=== PATIENT | female | born 1940 | race Caucasian/White ===

== ENCOUNTER 2017-02-25 14:10 | Observation (INO) | payer OTHER ==
[~2017-02-25] VITALS: Ht 154.9 cm; Wt 56.2 kg
--- NOTE | 2017-02-25 15:11 | DIAGNOSTIC IMAGING REPORT ---
PROCEDURE: XR CHEST 1 VIEW INDICATION: CHEST PAIN TECHNIQUE: Portable AP view 02:26 p.m. COMPARISON: Chest x-ray 06/13/2014 FINDINGS: Stable 3 mm right upper lobe calcified granuloma. There are two additional left basilar 2 mm calcified granulomas. Heart and mediastinum are normal. Tortuous aorta. Thorax is normal. IMPRESSION: 1. No acute changes 2. Granulomas
--- NOTE | 2017-02-25 15:34 | ED ORDER SUMMARY ---
..... Patient: CHAR CASTAÑEDA OrderSheet [facility] VisitID: [id number] [place] [address] 76y, F Registration Date/Time: 02/25/2017 ORDER SHEET Weight: 54.4 kg (stated) Allergies: Codeine, Metronidazole, PCN, Doxycycline, Ramipril, Cephalexin, Iodine GENERAL ORDERS: Chest 1V Urgent (14:02/25/2017 Emeka VILLALTA) (Ack 14:23 ZACKARYoewoody) (14:29 KHoerner) Import/Export Administrator (Continuous) (14:02/25/2017 Emeka VILLALTA) (14:22 Gregorio R.N.) CBC w Diff Urgent (14:02/25/2017 Emeka VILLALTA) (Ack 14:23 Florecita) (14:25 KHoerner) CMP Urgent (14:02/25/2017 Emeka VILLALTA) (Ack 14:23 Eliezerner) (14:25 KHoerner) UA-Culture if indicated Urgent (14:02/25/2017 Emeka VILLALTA) (Ack 14:23 Florecita) (14:25 KHoerner) PT with INR Urgent (14:02/25/2017 Emeka VILLALTA) (Ack 14:23 Florecita) (14:25 KHoerner) PTT Urgent (14:02/25/2017 Emeka VILLALTA) (Ack 14:23 Florecita) (14:25 KHoerner) BNP Urgent (14:02/25/2017 Emeka VILLALTA) (Ack 14:23 Florecita) (14:25 KHoerner) D-Dimer Urgent (14:02/25/2017 Emeka VILLALTA) (Ack 14:23 ZACKARYoeelbaner) (14:25 KHoerner) Amylase Urgent (14:02/25/2017 Emeka VILLALTA) (Ack 14:23 Florecita) (14:25 KHoerner) Lipase Urgent (14:02/25/2017 Emeka VILLALTA) (Ack 14:23 Eliezerner) (14:25 KHoerner) CPK Urgent (14:21 02/25/2017 Emeka VILLALTA) (Ack 14:23 KHoerner) (14:25 KHoervenita) Troponin-I Urgent (14:02/25/2017 Emeka VILLALTA) (Ack 14:23 KHoerner) (14:25 KHoerner) Oxygen (2 L/min) (NC) (14:02/25/2017 Emeka VILLALTA) (14:22 Gregorio R.N.) Pulse oximeter (14:02/25/2017 Emeka VILLALTA) (14:22 Gregorio R.N.) EKG - ER Stat (14:02/25/2017 Emeka VILLALTA) (14:22 Gregorio R.N.) MEDICATION ORDERS: Aspirin PO 325 mg (NOW) (14:21 02/25/2017 Emeka VILLALTA) (Ack 14:22 Gregorio R.N.) (Cancelled: Physician Order14:27 Gregorio R.N.) IV FLUIDS: ORDER SHEET NOTES: [Electronically signed by Joseph French R.N. (16:50 02/25/2017)] [Electronically signed by Syed Calvert MD (17:00 02/25/2017)] [Electronically locked/signed by Joseph French R.N. (16:50 02/25/2017)]
--- NOTE | 2017-02-25 15:34 | ED ORDER SUMMARY ---
..... Patient: CHAR CASTAÑEDA OrderSheet [facility] VisitID: [id number] [place] [address] 76y, F Registration Date/Time: 02/25/2017 ORDER SHEET Weight: 54.4 kg (stated) Allergies: Codeine, Metronidazole, PCN, Doxycycline, Ramipril, Cephalexin, Iodine GENERAL ORDERS: Chest 1V Urgent (14:02/25/2017 Emeka VILLALTA) (Ack 14:23 ZACKARYoewoody) (14:29 KHoerner) Denture Contour Wire Specialist (Continuous) (14:02/25/2017 Emeka VILLALTA) (14:22 Gregorio R.N.) CBC w Diff Urgent (14:02/25/2017 Emeka VILLALTA) (Ack 14:23 Florecita) (14:25 KHoerner) CMP Urgent (14:02/25/2017 Emeka VILLALTA) (Ack 14:23 Eliezerner) (14:25 KHoerner) UA-Culture if indicated Urgent (14:02/25/2017 Emeka VILLALTA) (Ack 14:23 Florecita) (14:25 KHoerner) PT with INR Urgent (14:02/25/2017 Emeka VILLALTA) (Ack 14:23 Florecita) (14:25 KHoerner) PTT Urgent (14:02/25/2017 Emeka VILLALTA) (Ack 14:23 Florecita) (14:25 KHoerner) BNP Urgent (14:02/25/2017 Emeka VILLALTA) (Ack 14:23 Florecita) (14:25 KHoerner) D-Dimer Urgent (14:02/25/2017 Emeka VILLALTA) (Ack 14:23 ZACKARYoeelbaner) (14:25 KHoerner) Amylase Urgent (14:02/25/2017 Emeka VILLALTA) (Ack 14:23 Florecita) (14:25 KHoerner) Lipase Urgent (14:02/25/2017 Emeka VILLALTA) (Ack 14:23 Eliezerner) (14:25 KHoerner) CPK Urgent (14:21 02/25/2017 Emeka VILLALTA) (Ack 14:23 KHoerner) (14:25 KHoervenita) Troponin-I Urgent (14:02/25/2017 Emeka VILLALTA) (Ack 14:23 KHoerner) (14:25 KHoerner) Oxygen (2 L/min) (NC) (14:02/25/2017 Emeka VILLALTA) (14:22 Gregorio R.N.) Pulse oximeter (14:02/25/2017 Emeka VILLALTA) (14:22 Gregorio R.N.) EKG - ER Stat (14:02/25/2017 mEeka VILLALTA) (14:22 Gregorio R.N.) MEDICATION ORDERS: Aspirin PO 325 mg (NOW) (14:21 02/25/2017 Emeka VILLALTA) (Ack 14:22 Gregorio R.N.) (Cancelled: Physician Order14:27 Gregorio R.N.) IV FLUIDS: ORDER SHEET NOTES: [Electronically signed by Joseph French R.N. (16:50 02/25/2017)] [Electronically signed by Syed Calvert MD (17:00 02/25/2017)] [Electronically locked/signed by Joseph French R.N. (16:50 02/25/2017)]
--- NOTE | 2017-02-25 15:34 | ED CLINICAL REPORT ---
Clinical Report - Physicians/Mid Levels [facility] [address] [place] [address] 02/25/2017 14:10 Patient: CHAR CASTAÑEDA Time Seen: 14:17. Arrived- By private vehicle. Historian- patient. HISTORY OF PRESENT ILLNESS Chief Complaint: CHEST PAIN. At its maximum, severity described as 7 / 10. When seen in the E.D., it was gone. This started today and is now gone. It was abrupt in onset and has been constant. Onset during sleep. It is described as sharp and it is described as located in the left chest area and radiating to the left arm. The patient has had mild difficulty breathing and nausea. No vomiting or diaphoresis. Similar symptoms previously: Prehospital Treatment: EMS treatment SLEEP TECHNOLOGIST verbally communicated. NITROGLYCERIN SL given by EMS. REVIEW OF SYSTEMS No chills, fever, sweats, pedal edema or constipation. No diarrhea, nausea or vomiting. She has had mild calf pain involving the right leg and left leg (chronically). It has been similar to previous episodes. She has had mild, aching abdominal pain (her PCP has been following this). The pain is described as located in the upper abdomen. All systems otherwise negative, except as recorded above. PAST HISTORY PCP - [facility] - [facility]. Problems: Coronary Artery Disease. Aphthous Ulcer. Chest Pain. Eye Pain. Chest Wall Pain. Constipation. Diverticulitis. Pressure Ulcer. Hypotension. GI Bleeding. Fibromyalgia. Anxiety Reaction. Hypertension. Corneal Abrasion. Additional Surgeries: Angioplasty with coronary artery stent placement. Cardiac Procedures. Cholecystectomy. Hysterectomy. Kidney stones. Medications: Aspirin EC Oral 81 mg, daily. Pantoprazole Sodium Oral 40 mg, daily. Zofran ODT Oral, as needed. Omeprazole Oral 40 mg, before meals. Metoprolol Tartrate Oral 25 mg, two times a day. DULoxetine HCl Oral 60mg, daily. Benzonatate Oral (Capsule 200 mg) 1 capsule, 3x a day. Advair Diskus Inhalation (Aerosol Powder Breath Activated 100-50 mcg/dose) 1 puff, 2x a day. Allergies: Cephalexin. Codeine.(Anaphylaxis) Doxycycline. Iodine. Metronidazole. PCN. Ramipril. SOCIAL HISTORY Current every day heavy tobacco smoker (cigarette)- 1 pack per day. No alcohol use or drug use. Residence: [place] she lives with spouse. FAMILY HISTORY No history of aortic aneurysm or dissection. Cancer in first-degree relative (father). father due to a PE. ADDITIONAL NOTES The nursing notes have been reviewed. PHYSICAL EXAM Vital Signs: 02/25/2017 14:09 BP: 135/89. HR: 70. RR: 15. O2 saturation: 99%. Temp: 98.2 F. Pain level now: 11/27. Have been reviewed. Appearance: Alert. No acute distress. Eyes: Pupils equal, round and reactive to light. ENT: Pharynx normal. Neck: Normal inspection. Neck supple. No JVD or carotid bruit. CVS: Normal heart rate and rhythm. Heart sounds normal. Respiratory: No respiratory distress. Breath sounds normal. Abdomen: Soft and nontender. Bowel sounds normal. No organomegaly. No mass. Back: Normal external inspection. No CVA tenderness. Skin: Skin warm and dry. Normal skin color. Normal skin turgor. Extremities: Mild right-sided and left-sided calf tenderness. Extremities exhibit normal ROM. No lower extremity edema. LABS, X-RAYS, AND EKG EKG: Rate: 72. Q waves in lead III and aVF. Changes present when compared to prior EKG. (13 June 2014). The study has been independently viewed by me. Chest X-ray: (IMPRESSION: 1. No acute changes 2. Granulomas). The X-rays were interpreted by the radiologist and contemporaneously by me. Laboratory Tests: CBC w Diff: (ARTIS: 02/25/2017 14:15) ( MsgRcvd 02/25/2017 14:37) Final results Test Result Flag Units (Reference) WHITE BLOOD COUNT 6.9 K/uL (4.5-11.5) RED BLOOD COUNT 3.87 L M/uL (4.00-5.20) HEMOGLOBIN 11.6 L gm/dL (12.0-16.0) HEMATOCRIT 35.6 L % (36.0-46.0) MEAN CELL VOLUME 92 fL (80-100) MEAN CORPUSCULAR HGB 30 pg (26-34) MEAN CORPUSCULAR HGB CONC 33 g/dL (31-37) RED CELL DISTRIBUTION WIDTH 14.5 % (11.6-14.8) PLATELET COUNT 262 K/uL (150-400) NEUTROPHIL % 58.7 % (50-75) LYMPH % 32.7 % (25-40) MONO % 5.7 % (3-14) EOSINOPHIL % 2.3 % (0-4) BASOPHIL % 0.6 % (0-2) PT with INR: (ARTIS: 02/25/2017 14:15) ( MsgRcvd 02/25/2017 14:45) Final results Test Result Flag Units (Reference) INR 0.9 (0.8-1.2) Low Intensity Therapy: INR 1.5-2.0 PT range 18.5-23.1Mod.Intensity Therapy: INR 2.0-3.0 PT range 23.1-31.5High Intensity Therapy: INR 2.5-3.5 PT range 27.4-35.5High Intensity Therapy 2: INR 3.0-4.0 PT range 31.5-39.3 APTT 30 SECONDS (24-34) D-DIMER QUANTITATIVE 0.44 ug/mLFEU (0.27-0.52) The primary value of this quantitative assay relates toits negative predictive value (i.e. exclusion) of pulmonaryembolism/deep vein thrombosis/DIC.Elevated levels of d-dimer may also occur with:, age, cancer, inflammation, liver disease,post-op, infection, hematoma, coronary disease, peripheralarteriopathy, bleeding disorders and thrombolytic treatment.Results should be correlated with other clinical andradiological data.Testing Methodology: Latex Immunoassay BNP: (ARTIS: 02/25/2017 14:15) ( MsgRcvd 02/25/2017 14:55) Final results Test Result Flag Units (Reference) B-TYPE NATRIURETIC PEPTIDE 39.6 pg/ml (5-100) CMP: (ARTIS: 02/25/2017 14:15) ( MsgRcvd 02/25/2017 14:56) Final results Test Result Flag Units (Reference) GLUCOSE 109 mg/dL (70-110) BUN 16 mg/dL (7-18) CREATININE 1.1 mg/dL (0.6-1.3) Estimated GFR 51.19 mL/min Estimated GFR- >60 mL/min Note: Persistent reduction over 3 months in eGFR<60 mL/min/1.73 m2 defines CKD. Patients with eGFR values>=60 mL/min/1.73 m2 may also have CKD if evidence ofpersistent proteinuria. Additional information may be foundat www.kidney.org. SODIUM 141 mmol/L (136-145) POTASSIUM 4.9 mmol/L (3.5-5.1) CHLORIDE 106 mmol/L (98-107) CARBON DIOXIDE 25 mmol/L (21-32) CALCIUM 9.2 mg/dL (8.5-10.1) TOTAL PROTEIN 6.6 g/dL (6.4-8.2) ALBUMIN 3.7 g/dL (3.3-5.0) BILIRUBIN, TOTAL 0.2 mg/dL (0.0-1.0) ALKALINE PHOSPHATASE 76 U/L (46-116) AST (SGOT) 19 U/L (15-37) ALT (SGPT) 13 U/L (12-78) LIPASE 117 U/L (73-393) AMYLASE 46 U/L (25-115) CPK 52 U/L (24-260) TROPONIN I <0.05 ng/mL (0.00-1.5) TROPONIN REFERENCE RANGE:<0.1 NEGATIVE0.1-1.5 INDETERMINANT>1.5 POSITIVE . PROGRESS AND PROCEDURES Discussed case with hospitalist, (Elidia - he saw the patient in the ER). Reviewed test results and need for additional work-up. Agreed upon treatment plan, need for patient follow-up and decision to place in observation. Consult obtained from cardiology. Dr. Coburn. Case discussed. Phone consult only. Patient/family counseled. CLINICAL IMPRESSION Chest pain. (Electronically signed by Syed Calvert MD 02/25/2017 17:00)
--- NOTE | 2017-02-25 15:34 | ED NURSING NOTES ---
Clinical Report - Nurses [facility] [address] [place] [address] 02/25/2017 14:10 Patient: CHAR CASTAÑEDA TRIAGE Triage time 14:09. Acuity: LEVEL 3. Chief Complaint: CHEST PAIN. 14:02/25/17. 14:02/25/17. Alert. No acute distress. SEPSIS SCREEN: Sepsis Screen. Negative (no infection suspected/documented). --14:18 Joseph French R.N. 14:02/25/17. BP: 135/89. HR: 70. RR: 15. O2 saturation: 99% on room air. Temp: 98.2 F (oral). Pain level now: 11/27. --14:18 Joseph French R.N. ( Pt developed chest pain at 0200. Pt took 3 doses of NTG SL at home. Pt then took ASA this AM at 0300. Pt went to walk in clinic [facility] and then transferred here.). --14:20 Joseph French R.N. Weight: 54.4 kg stated. Height/Length: 62 inches Per Patient. BMI: 22. --14:10 Joseph French R.N. Medications Advair Diskus Inhalation (Aerosol Powder Breath Activated 100-50 mcg/dose) 1 puff, 2x a day. --14:13 Joseph French R.N. Benzonatate Oral (Capsule 200 mg) 1 capsule, 3x a day. --14:14 Joseph French R.N. DULoxetine HCl Oral 60mg, daily. --14:14 Joseph French R.N. Metoprolol Tartrate Oral 25 mg, two times a day. --14:14 Joseph French R.N. Omeprazole Oral 40 mg, before meals. --14:15 Joseph French R.N. Zofran ODT Oral, as needed. --14:15 Joseph French R.N. Pantoprazole Sodium Oral 40 mg, daily. --14:16 Joseph French R.N. Aspirin EC Oral 81 mg, daily. --14:33 Joseph French R.N. Medication/allergy information source: the patient. --14:18 Joseph French R.N. Allergies Codeine.(Anaphylaxis) --14:16 Joseph French R.N. Metronidazole. --14:17 Joseph French R.N. PCN. --14:17 Joseph French R.N. Doxycycline. --14:17 Joseph French R.N. Ramipril. --14:17 Joseph French R.N. Cephalexin. --14:17 Joseph French R.N. Iodine. --14:18 Joseph French R.N. History Arrived by EMS. Historian: patient. Unaccompanied. Primary physician (KENNEDY FULTON). 14:09 02/25/17. This started today. ( 0200). She has had difficulty breathing. Treatment NAME PLATE STAMPER: (NTG x 2 spray NAME PLATE STAMPER by EMS, NTG at home, ASA at home). PAST MEDICAL HX: Immunizations: has received pneumonia vaccine; has received tetanus within 5 years. Immunizations not up to date. SOCIAL HX: Current every day light tobacco smoker (cigarette)- less than 1/2 a pack per day. No alcohol use or drug use. No infectious disease exposure. ABUSE ASSESSMENT: No report of abuse. FALL RISK ASSESSMENT: Fall risk assessment completed. No fall risk identified. NUTRITIONAL RISK ASSESSMENT: The nutritional risk assessment revealed no deficiencies. FUNCTIONAL ASSESSMENT: Functional assessment: no impairments noted. LEARNING NEEDS ASSESSMENT: The learning needs assessment revealed no barriers. SKIN INTEGRITY ASSESSMENT: Skin integrity risk assessment completed. No skin integrity risk identified. --14:18 Joseph French R.N. Treatment NAME PLATE STAMPER: See EMS report. Pre-hospital 12-lead EKG time: (1336). Pre-hospital 12-lead EKG performed on-scene and interpreted by EMS. EKG consistent with normal tracing. BP: 170 / palp-prior to NTG. HR: 72 regular. ( BP 136/78 after NTG spray). --14:22 Joseph French R.N. PROBLEMS: Coronary Artery Disease. Aphthous Ulcer. Chest Pain. Eye Pain. Chest Wall Pain. Constipation. Diverticulitis. Pressure Ulcer. Hypotension. GI Bleeding. Fibromyalgia. Anxiety Reaction. Hypertension. Corneal Abrasion. Immunizations. --14:18 Joseph French R.N. URI [RuleOut]. --14:18 Joseph French R.N. ADDITIONAL SURGERIES: Angioplasty with coronary artery stent placement. Cardiac Procedures. Cholecystectomy. Hysterectomy. Kidney stones. --14:18 Joseph French R.N. Assessment 14:02/25/17. --14:18 Joseph French R.N. Interventions 14:02/25/17. 14:02/25/17. ID and allergy band on patient. To treatment room. --14:18 Joseph French R.N. PHYSICAL ASSESSMENT 14:02/25/17. Ambulatory to room. GENERAL / NEURO / PSYCH: Alert. Oriented X 4. Appears in no acute distress. RESPIRATORY: Respirations not labored. CVS: Cardiac rhythm: normal sinus rhythm; (69). Pulses within normal limits. Capillary refill less than 2 seconds. SKIN: Skin is warm and dry. --14:19 Joseph French R.N. NURSING PROGRESS NOTES <<STRICKEN ENTRY-- 14:02/25/2017 Site #1 started via IV in the left antecubital space with an 20g angiocath (started by EMS, blood drawn by Tom MAK through IV site). --14:26 Joseph French R.N. --END STRIKE>> Correction. --14:35 Joseph French R.N. 14:02/25/2017 Site #1 started via IV in the left forearm with an 20g angiocath (started by EMS, blood drawn by Tom MAK through IV site). --14:35 Joseph French R.N. 14:02/25/17. The plan of care for this patient has been created. Oxygen administered. packaging machine supplies distributor, pulse oximeter and NIBP monitor placed on patient. EKG time: (5434). EKG was ordered, performed by a nurse and shown to the ED physician. Patient gowned. Head of bed elevated. Reassurance given. Call light placed in reach. Side rails up x 2. Bed placed in lowest position. Brakes of bed on. --14:12 Joseph French R.N. 14:28 02/25/17. ( Pt had ASA, NAME PLATE STAMPER, aware.). --14:28 Joseph French R.N. 14:31 02/25/17. --14:31 Joseph French R.N. 14:30 02/25/17. BP: 125/81. HR: 65. RR: 14. O2 saturation: 99% on nasal cannula at 2 liters/minute. --14:31 Joseph French R.N. 14:31 02/25/17. Patient informed about reason for wait and about plan of care. --14:31 Joseph French R.N. 14:34 02/25/17. Reassessment after medication administered. She has had no adverse reaction. Overall patient status is improved- she states feels better. --14:34 Joseph French R.N. 14:38 02/25/17. Patient informed about reason for wait and about plan of care. --14:38 Joseph French R.N. EKG time: (14:36). EKG was performed by a tech and shown to the PA. --14:41 Patricia Contreras <<STRICKEN ENTRY-- Patient ID band checked for patient name and birthdate: patient confirmed. Instructions provided to collect clean catch urine and patient verbalized understanding urine collected with return of yellow-colored clear urine; odor is normal; sample sent to lab for urinalysis, culture and HCG. Specimen labeled in the presence of the patient. --14:46 Patricia Contreras --END STRIKE>> Charted On Wrong Patient --14:48 Patricia Contreras 15:04 02/25/17. Patient informed about reason for wait and about plan of care. --15:04 Joseph French R.N. 15:04 02/25/17. Patient waiting for lab results. --15:04 Joseph French R.N. 15:25 02/25/17. ( Pt to be admitted due to chest pain.). --15:25 Joseph French R.N. 15:38 02/25/17. --15:38 Joseph French R.N. 15:38 02/25/17. BP: 134/82. HR: 65. RR: 14. O2 saturation: 99% on nasal cannula at 2 liters/minute. --15:38 Joseph French R.N. 15:38 02/25/17. Cardiac rhythm: normal sinus rhythm; (63). --15:38 Joseph French R.N. 16:05 02/25/17. Patient waiting for admit bed. --16:05 Joseph French R.N. DISPOSITION / DISCHARGE 15:35 02/25/17. Patient's personal items include, bra, pants, shoes, no weapons, no meds; items were placed in belongings bag. --15:35 Joseph French R.N. 16:36 02/25/2017 Site #[address] upon admission; patent. --16:36 Joseph French R.N. 16:37 02/25/17. The goals identified in the patient's plan of care were met. Report was given to a nurse via a phone call. Report included patient's care, treatment, medications, reviewed medication reconcilliation, and condition (including any recent changes or anticipated changes). Report was acknowledged and care was transferred. FALL RISK ASSESSMENT: Fall risk assessment completed. No fall risk identified. --16:37 Joseph French R.N. 16:36 02/25/17. BP: 132/88. HR: 72. RR: 14. O2 saturation: 99% on nasal cannula at 2 liters/minute. Temp: 98.1 F (oral). Pain level now: 0/10. --16:37 Joseph French R.N. 16:45 02/25/17. Departure time: 16:45. Admitted to Acute Care. Transported via stretcher by transport team with IV. --16:45 Joseph French R.N. Locked/Released at 02/25/2017 16:50 by Joseph French R.N.
--- NOTE | 2017-02-25 15:34 | ED NURSING NOTES ---
Clinical Report - Nurses [facility] [address] [place] [address] 02/25/2017 14:10 Patient: CHAR CASTAÑEDA TRIAGE Triage time 14:09. Acuity: LEVEL 3. Chief Complaint: CHEST PAIN. 14:02/25/17. 14:02/25/17. Alert. No acute distress. SEPSIS SCREEN: Sepsis Screen. Negative (no infection suspected/documented). --14:18 Joseph French R.N. 14:02/25/17. BP: 135/89. HR: 70. RR: 15. O2 saturation: 99% on room air. Temp: 98.2 F (oral). Pain level now: 11/27. --14:18 Joseph French R.N. ( Pt developed chest pain at 0200. Pt took 3 doses of NTG SL at home. Pt then took ASA this AM at 0300. Pt went to walk in clinic [facility] and then transferred here.). --14:20 Joseph French R.N. Weight: 54.4 kg stated. Height/Length: 62 inches Per Patient. BMI: 22. --14:10 Joseph French R.N. Medications Advair Diskus Inhalation (Aerosol Powder Breath Activated 100-50 mcg/dose) 1 puff, 2x a day. --14:13 Joseph French R.N. Benzonatate Oral (Capsule 200 mg) 1 capsule, 3x a day. --14:14 Joseph French R.N. DULoxetine HCl Oral 60mg, daily. --14:14 Joseph French R.N. Metoprolol Tartrate Oral 25 mg, two times a day. --14:14 Joseph French R.N. Omeprazole Oral 40 mg, before meals. --14:15 Joseph French R.N. Zofran ODT Oral, as needed. --14:15 Joseph French R.N. Pantoprazole Sodium Oral 40 mg, daily. --14:16 Joseph French R.N. Aspirin EC Oral 81 mg, daily. --14:33 Joseph French R.N. Medication/allergy information source: the patient. --14:18 Joseph French R.N. Allergies Codeine.(Anaphylaxis) --14:16 Joseph French R.N. Metronidazole. --14:17 Joseph French R.N. PCN. --14:17 Joseph French R.N. Doxycycline. --14:17 Joseph French R.N. Ramipril. --14:17 Joseph French R.N. Cephalexin. --14:17 Joseph French R.N. Iodine. --14:18 Joseph French R.N. History Arrived by EMS. Historian: patient. Unaccompanied. Primary physician (KENNEDY FULTON). 14:09 02/25/17. This started today. ( 0200). She has had difficulty breathing. Treatment UNDERWRITING SALES REPRESENTATIVE: (NTG x 2 spray UNDERWRITING SALES REPRESENTATIVE by EMS, NTG at home, ASA at home). PAST MEDICAL HX: Immunizations: has received pneumonia vaccine; has received tetanus within 5 years. Immunizations not up to date. SOCIAL HX: Current every day light tobacco smoker (cigarette)- less than 1/2 a pack per day. No alcohol use or drug use. No infectious disease exposure. ABUSE ASSESSMENT: No report of abuse. FALL RISK ASSESSMENT: Fall risk assessment completed. No fall risk identified. NUTRITIONAL RISK ASSESSMENT: The nutritional risk assessment revealed no deficiencies. FUNCTIONAL ASSESSMENT: Functional assessment: no impairments noted. LEARNING NEEDS ASSESSMENT: The learning needs assessment revealed no barriers. SKIN INTEGRITY ASSESSMENT: Skin integrity risk assessment completed. No skin integrity risk identified. --14:18 Joseph French R.N. Treatment UNDERWRITING SALES REPRESENTATIVE: See EMS report. Pre-hospital 12-lead EKG time: (1336). Pre-hospital 12-lead EKG performed on-scene and interpreted by EMS. EKG consistent with normal tracing. BP: 170 / palp-prior to NTG. HR: 72 regular. ( BP 136/78 after NTG spray). --14:22 Joseph French R.N. PROBLEMS: Coronary Artery Disease. Aphthous Ulcer. Chest Pain. Eye Pain. Chest Wall Pain. Constipation. Diverticulitis. Pressure Ulcer. Hypotension. GI Bleeding. Fibromyalgia. Anxiety Reaction. Hypertension. Corneal Abrasion. Immunizations. --14:18 Joseph French R.N. URI [RuleOut]. --14:18 Joseph French R.N. ADDITIONAL SURGERIES: Angioplasty with coronary artery stent placement. Cardiac Procedures. Cholecystectomy. Hysterectomy. Kidney stones. --14:18 Joseph French R.N. Assessment 14:02/25/17. --14:18 Joseph French R.N. Interventions 14:02/25/17. 14:02/25/17. ID and allergy band on patient. To treatment room. --14:18 Joseph French R.N. PHYSICAL ASSESSMENT 14:02/25/17. Ambulatory to room. GENERAL / NEURO / PSYCH: Alert. Oriented X 4. Appears in no acute distress. RESPIRATORY: Respirations not labored. CVS: Cardiac rhythm: normal sinus rhythm; (69). Pulses within normal limits. Capillary refill less than 2 seconds. SKIN: Skin is warm and dry. --14:19 Joseph French R.N. NURSING PROGRESS NOTES <<STRICKEN ENTRY-- 14:02/25/2017 Site #1 started via IV in the left antecubital space with an 20g angiocath (started by EMS, blood drawn by Tom MAK through IV site). --14:26 Joseph French R.N. --END STRIKE>> Correction. --14:35 Joseph French R.N. 14:02/25/2017 Site #1 started via IV in the left forearm with an 20g angiocath (started by EMS, blood drawn by Tom MAK through IV site). --14:35 Joseph French R.N. 14:02/25/17. The plan of care for this patient has been created. Oxygen administered. nurse monitoring, pulse oximeter and NIBP monitor placed on patient. EKG time: (4834). EKG was ordered, performed by a nurse and shown to the ED physician. Patient gowned. Head of bed elevated. Reassurance given. Call light placed in reach. Side rails up x 2. Bed placed in lowest position. Brakes of bed on. --14:12 Joseph French R.N. 14:28 02/25/17. ( Pt had ASA, UNDERWRITING SALES REPRESENTATIVE, aware.). --14:28 Joseph French R.N. 14:31 02/25/17. --14:31 Joseph French R.N. 14:30 02/25/17. BP: 125/81. HR: 65. RR: 14. O2 saturation: 99% on nasal cannula at 2 liters/minute. --14:31 Joseph French R.N. 14:31 02/25/17. Patient informed about reason for wait and about plan of care. --14:31 Joseph French R.N. 14:34 02/25/17. Reassessment after medication administered. She has had no adverse reaction. Overall patient status is improved- she states feels better. --14:34 Joseph French R.N. 14:38 02/25/17. Patient informed about reason for wait and about plan of care. --14:38 Joseph French R.N. EKG time: (14:36). EKG was performed by a tech and shown to the PA. --14:41 Patricia Contreras <<STRICKEN ENTRY-- Patient ID band checked for patient name and birthdate: patient confirmed. Instructions provided to collect clean catch urine and patient verbalized understanding urine collected with return of yellow-colored clear urine; odor is normal; sample sent to lab for urinalysis, culture and HCG. Specimen labeled in the presence of the patient. --14:46 Patricia Contreras --END STRIKE>> Charted On Wrong Patient --14:48 Patricia Conrteras 15:04 02/25/17. Patient informed about reason for wait and about plan of care. --15:04 Joseph French R.N. 15:04 02/25/17. Patient waiting for lab results. --15:04 Joseph French R.N. 15:25 02/25/17. ( Pt to be admitted due to chest pain.). --15:25 Joseph French R.N. 15:38 02/25/17. --15:38 Joseph French R.N. 15:38 02/25/17. BP: 134/82. HR: 65. RR: 14. O2 saturation: 99% on nasal cannula at 2 liters/minute. --15:38 Joseph French R.N. 15:38 02/25/17. Cardiac rhythm: normal sinus rhythm; (63). --15:38 Joseph French R.N. 16:05 02/25/17. Patient waiting for admit bed. --16:05 Joseph French R.N. DISPOSITION / DISCHARGE 15:35 02/25/17. Patient's personal items include, bra, pants, shoes, no weapons, no meds; items were placed in belongings bag. --15:35 Joseph French R.N. 16:36 02/25/2017 Site #[address] upon admission; patent. --16:36 Joseph French R.N. 16:37 02/25/17. The goals identified in the patient's plan of care were met. Report was given to a nurse via a phone call. Report included patient's care, treatment, medications, reviewed medication reconcilliation, and condition (including any recent changes or anticipated changes). Report was acknowledged and care was transferred. FALL RISK ASSESSMENT: Fall risk assessment completed. No fall risk identified. --16:37 Joseph French R.N. 16:36 02/25/17. BP: 132/88. HR: 72. RR: 14. O2 saturation: 99% on nasal cannula at 2 liters/minute. Temp: 98.1 F (oral). Pain level now: 0/10. --16:37 Joseph French R.N. 16:45 02/25/17. Departure time: 16:45. Admitted to Acute Care. Transported via stretcher by transport team with IV. --16:45 Joseph French R.N. Locked/Released at 02/25/2017 16:50 by Joseph French R.N.
[2017-02-25] MEDS ORDERED: ADVAIR DISKU1 INH (16:22)
[2017-02-25] MEDS ORDERED: CYMBALTA60 MG PO (16:23)
[2017-02-25] MEDS ORDERED: ASPIRIN ADULT L81 MG PO (16:23)
[2017-02-25] MEDS ORDERED: BENZONATATE200 MG PO (16:23)
[2017-02-25] MEDS ORDERED: METOPROLOL SUCC25 MG PO (16:24)
[2017-02-25] MEDS ORDERED: OMEPRAZOLE40 MG PO (16:25)
[2017-02-25] MEDS ORDERED: ZOFRAN ODT4 MG PO (16:26)
[2017-02-25] MEDS ORDERED: PROTONIX40 MG PO (16:26)
--- NOTE | 2017-02-25 16:53 | Progress Note ---
Subjective General 76 y.o female that has a hx of CAD stenting of LAD dz. Was with CP, L arm pain and brought to the ER. Initial Trop I neg. Dr. Javier is to do a nuclear stress test on her tomorrow.
[2017-02-25 16:55] VITALS: BP 114/93
--- NOTE | 2017-02-25 17:00 | ED DISCHARGE INSTRUCTIONS ---
Patient: CHAR CASTAÑEDA General Instructions [facility] VisitID: [id number] [address] [place] [address] 76y, F Registration Date/Time: 02/25/2017 Chest pain. (Electronically signed by Syed Calvert MD 02/25/2017 17:00)
--- NOTE | 2017-02-25 17:00 | ED MED RECONCILIATION SUMMARY ---
Patient: CHAR CASTAÑEDA Medication Reconciliation Report [facility] VisitID: [id number] [address] [place] [address] 76y, F Registration Date/Time: 02/25/2017 Weight: 54.4 kg Height/Length: 62 in. BMI: 22.0 ALLERGIES: Cephalexin, Codeine, Doxycycline, Iodine, Metronidazole, PCN, Ramipril The patient's Home Medications are listed below: THE FOLLOWING MEDICATIONS NEED TO BE RECONCILED: Advair Diskus Inhalation (100-50 mcg/dose) 1 puff, 2x a day Aspirin EC Oral 81 mg, daily Benzonatate Oral (200 mg) 1 capsule, 3x a day DULoxetine HCl Oral 60mg, daily Metoprolol Tartrate Oral 25 mg, two times a day Omeprazole Oral 40 mg, before meals Pantoprazole Sodium Oral 40 mg, daily Zofran ODT Oral The source(s) of the original Home Medication information: patient The following Medications were given to the patient in the Emergency Department: None. The following Medications were prescribed to the patient: None.
--- NOTE | 2017-02-25 17:00 | ED MAR SUMMARY ---
..... Medication Administration Record [address], [place] [id number] Patient: CHAR CASTAÑEDA Visit ID: [id number] 76y, F Weight: 54.4 kg Height/Length: 62 in BMI: 22 ALLERGIES: Iodine, Cephalexin, Ramipril, Doxycycline, PCN, Metronidazole, Codeine
--- NOTE | 2017-02-25 17:00 | ED MED RECONCILIATION SUMMARY ---
Patient: CHAR CASTAÑEDA Medication Reconciliation Report [facility] VisitID: [id number] [address] [place] [address] 76y, F Registration Date/Time: 02/25/2017 Weight: 54.4 kg Height/Length: 62 in. BMI: 22.0 ALLERGIES: Cephalexin, Codeine, Doxycycline, Iodine, Metronidazole, PCN, Ramipril The patient's Home Medications are listed below: THE FOLLOWING MEDICATIONS NEED TO BE RECONCILED: Advair Diskus Inhalation (100-50 mcg/dose) 1 puff, 2x a day Aspirin EC Oral 81 mg, daily Benzonatate Oral (200 mg) 1 capsule, 3x a day DULoxetine HCl Oral 60mg, daily Metoprolol Tartrate Oral 25 mg, two times a day Omeprazole Oral 40 mg, before meals Pantoprazole Sodium Oral 40 mg, daily Zofran ODT Oral The source(s) of the original Home Medication information: patient The following Medications were given to the patient in the Emergency Department: None. The following Medications were prescribed to the patient: None.
--- NOTE | 2017-02-25 17:00 | ED DISCHARGE INSTRUCTIONS ---
Patient: CHAR CASTAÑEDA General Instructions [facility] VisitID: [id number] [address] [place] [address] 76y, F Registration Date/Time: 02/25/2017 Chest pain. (Electronically signed by Syed Calvert MD 02/25/2017 17:00)
--- NOTE | 2017-02-25 17:00 | ED MAR SUMMARY ---
..... Medication Administration Record [facility] [address] [place], [place] [id number] Patient: CHAR CASTAÑEDA Visit ID: [id number] 76y, F Weight: 54.4 kg Height/Length: 62 in BMI: 22 ALLERGIES: Iodine, Cephalexin, Ramipril, Doxycycline, PCN, Metronidazole, Codeine
--- NOTE | 2017-02-25 19:53 | HISTORY AND PHYSICAL ---
ADMITTED: 02/25/2017 CHIEF COMPLAINT: 1. Chest pain HISTORY OF PRESENT ILLNESS: The patient states that about 2 a.m. this morning she started having some chest discomfort. It started going down her left arm some. At its maximum intensity, it was 7/10 chest discomfort. She was at home. It got pretty bad at around 11:00 a.m. Took a couple aspirin and was not getting better. So went into the walk-in clinic. In the walk-in clinic, she was transported to the hospital by 911. In the ED, the patient had an initial negative workup with negative troponin I' s. She has a program management specialist, who had previously treated her for an LAD stent, Dr. Coburn , who suggested that we admit her for chest pain, rule out myocardial infarction, and perform a nuclear stress test on her tomorrow. MEDICAL/SURGICAL HISTORY: Her primary doctor is Dr. Barron. He works at [employer] . Cardiology is Dr. Coburn. Problems: She has had heart disease, aphthous ulcer, chest pain, eye pain, chest wall pain, diverticulitis, pressure ulcer, hypotension, GI bleeding, fibromyalgia, anxiety, hypertension, corneal abrasion. Past surgeries: She had angioplasty with coronary artery stent placed 6 years ago in the left anterior descending. She has had a cholecystectomy, appendectomy, hysterectomy, and kidney stone surgery. MEDICATIONS: She takes: 1. Aspirin 81 mg p.o. daily. 2. Pantoprazole 40 mg p.o. daily. 3. Zofran ODT 4 mg q.4 hours p.r.n. She does not have any currently at home and so has not been taking this. 4. Metoprolol 25 mg p.o. b.i.d. 5. Duloxetine 60 mg p.o. daily. ALLERGIES: 1. CEPHALEXIN. 2. CODEINE. 3. DOXYCYCLINE. 4. IODINE. 5. METRONIDAZOLE. 6. PENICILLIN. 7. RAMIPRIL. SOCIAL HISTORY: She smokes about a pack a day. She does not drink or use any drugs. She lives with her spouse in [place]. HER CODE STATUS IS FULL CODE. FAMILY HISTORY: Mom of old age at age 90. Father of DVT in the face of lung cancer. REVIEW OF SYSTEMS: She has had no fevers, no chills. No constipation. No diarrhea, nausea, vomiting. She gets some swelling on her arms and legs at times, mild, currently not involved. Some mild chronic bilateral pains in her legs. Mild abdominal pain , midepigastric, which is chronic as well. PHYSICAL EXAMINATION: GENERAL: She is an alert, pleasant, talkative female in no distress. VITAL SIGNS: Blood pressure 135/89, heart rate of 70, respirations 15, temperature 98.2, saturating 99%. GENERAL: Appearance: She is an alert female in no apparent distress. HEENT: Her ocular movements are intact. Pupils equal, round, and reactive to light. Oropharynx is with moist mucous membranes. NECK: Supple without lymphadenopathy, JVD, or bruits. HEART: Regular rate and rhythm. No murmur. ABDOMEN: Soft. It is tender to palpation in the midepigastric region. CHEST WALL: Some tenderness over her sternum and over her costochondral junction. LUNGS: Clear to auscultation bilaterally. No wheezes, rales, or rhonchi. BACK: Normal inspection. No CVA tenderness. SKIN: Warm, dry, and intact. EXTREMITIES: There is mild calf tenderness bilaterally and normal range of motion. No edema. LAB/IMAGING: Her chest x-ray is unremarkable. EKG shows some inferior Q's in III and aVF and no significant ST and T-wave changes. Her white count is 6.9, hematocrit of 35.6, platelets of 262. INR 0.9. D-dimer 0.44. BNP of 39.6. Glucose 109, BUN of 16, creatinine 1.1, sodium 141, potassium 4.9, chloride of 106, carbon dioxide 25, calcium 9.2, total protein 6.0, albumin 3.7. Bilirubin 0.2, alkaline phosphatase 76, AST 19, ALT 13, lipase 117, amylase 46. CPK 52, troponin I less than 0.05. IMPRESSION: 1. This is a 76-year-old female who presented to the emergency department with a number of hours of chest discomfort and has initial troponins negative. 2. Has a significant history of left anterior descending artery disease. 3. As well as a current every day smoker at age 76. PLAN: 1. Admit the patient to the hospital. 2. We will rule her out for myocardial infarction with troponins. 3. Nuclear stress test tomorrow. 4. I advised that she quit smoking. 5. Treat her for her epigastric discomfort with proton pump inhibitors.
[2017-02-25 22:33] VITALS: BP 147/79
[2017-02-26 02:03] VITALS: BP 151/83
--- NOTE | 2017-02-26 07:15 | Progress Note ---
Subjective General 76 y.o female that has a hx of CAD stenting of LAD dz. Admitted with CP, L arm pain and brought to the ER. Troponins negative and EKG normal. Dr. Javier is to do a nuclear stress test on her today. Pt reports feeling well and denies cp /palp/sob/dizzy/nausea/vomiting or sweats. Physical Exam Vital Signs / I&Os Vital Signs Date Time Temp Pulse Resp B/P Pulse O2 O2 Flow FiO2 Ox Delivery Rate 02/26 0203 97.0 65 16 151/83 100 Room Air 0.0 02/25 2233 97.3 69 18 147/79 97 Room Air 0.0 02/25 1743 2.0 02/25 1719 2.0 02/25 1655 98.1 66 16 114/93 98 Nasal 2.0 Cannula I&O 02/25 0800 02/25 1600 02/26 0000 Intake Total 350 Output Total 200 Balance 150 General Appearance Alert, Oriented X3, Cooperative, No acute distress Lungs Normal exam Cardiovascular Normal exam, Regular rate and rhythm Abdomen Normal bowel sounds, Soft, No tenderness, No guarding, No rebound Extremities No edema Skin No Rashes LAB Results Laboratory Tests 02/25 02/25 02/25 1415 1415 1530 Chemistry Plasma Sodium (136 - 145 mmol/L) 141 Plasma Potassium (3.5 - 5.1 mmol/L) 4.9 Plasma Chloride (98 - 107 mmol/L) 106 CO2 (Enzymatic) (21 - 32 mmol/L) 25 BUN (7 - 18 mg/dL) 16 Creatinine (0.6 - 1.3 mg/dL) 1.1 Est GFR ( Amer) (mL/min) >60 Est GFR (Non-Af Amer) (mL/min) 51.19 Glucose (70 - 110 mg/dL) 109 Plasma Calcium (8.5 - 10.1 mg/dL) 9.2 Total Bilirubin (0.0 - 1.0 mg/dL) 0.2 AST (15 - 37 U/L) 19 ALT (12 - 78 U/L) 13 Alkaline Phosphatase (46 - 116 U/L) 76 Creatine Kinase (24 - 260 U/L) 52 Troponin (0.00 - 1.5 ng/mL) <0.05 B-Natriuretic Peptide (5 - 100 pg/ml) 39.6 Total Protein (6.4 - 8.2 g/dL) 6.6 Albumin (3.3 - 5.0 g/dL) 3.7 Amylase (25 - 115 U/L) 46 Lipase (73 - 393 U/L) 117 Coagulation INR (0.8 - 1.2) 0.9 APTT (24 - 34 SECONDS) 30 D-Dimer, Quantitative (0.27 - 0.52 ug/mLFEU) 0.44 Hematology WBC (4.5 - 11.5 K/uL) 6.9 RBC (4.00 - 5.20 M/uL) 3.87 Hgb (12.0 - 16.0 gm/dL) 11.6 Hct (36.0 - 46.0 %) 35.6 MCV (80 - 100 fL) 92 MCH (26 - 34 pg) 30 RDW (11.6 - 14.8 %) 14.5 Neut % (Auto) (50 - 75 %) 58.7 Lymph % (Auto) (25 - 40 %) 32.7 Johnston % (Auto) (3 - 14 %) 5.7 Eos % (Auto) (0 - 4 %) 2.3 Baso % (Auto) (0 - 2 %) 0.6 Plt Count, EDTA (150 - 400 K/uL) 262 PUBS MCHC (31 - 37 g/dL) 33 Urines Urine Color LIGHT YELLOW Urine Appearance CLEAR Urine pH (5.0 - 8.0) 5.5 Ur Specific [place] (1.010 - 1.030) <= 1.005 Urine Protein (NEGATIVE) NEGATIVE Urine Ketones (NEGATIVE) NEGATIVE Urine Blood (NEGATIVE) NEGATIVE Urine Nitrite (NEGATIVE) NEGATIVE Urine Bilirubin (NEGATIVE) NEGATIVE Urine Urobilinogen (0.2 - 1.0 EU/dL) 0.2 Ur Leukocyte Esterase (NEGATIVE) NEGATIVE Urine RBC (0 - 1 rbc/hpf) NONE SEEN Urine WBC (0 - 1 wbc/hpf) 0-1 Ur Epithelial Cells (0 - 5 EPI/hpf) 0-1 Urine Bacteria (NONE SEEN) NONE SEEN Urine Glucose (NEGATIVE) NEGATIVE Urine Comment CULT NOT INDICATED 02/25 02/26 02/26 0003 [id number] Chemistry Plasma Sodium (136 - 145 mmol/L) 141 Plasma Potassium (3.5 - 5.1 mmol/L) 4.0 Plasma Chloride (98 - 107 mmol/L) 104 CO2 (Enzymatic) (21 - 32 mmol/L) 25 BUN (7 - 18 mg/dL) 18 Creatinine (0.6 - 1.3 mg/dL) 1.3 Est GFR ( Amer) (mL/min) 51.16 Est GFR (Non-Af Amer) (mL/min) 42.21 Glucose (70 - 110 mg/dL) 115 Plasma Calcium (8.5 - 10.1 mg/dL) 8.6 Total Bilirubin (0.0 - 1.0 mg/dL) 0.2 AST (15 - 37 U/L) 18 ALT (12 - 78 U/L) 8 Alkaline Phosphatase (46 - 116 U/L) 71 Troponin (0.00 - 1.5 ng/mL) <0.05 <0.05 Total Protein (6.4 - 8.2 g/dL) 5.9 Albumin (3.3 - 5.0 g/dL) 3.1 Microbiology Date/Time Procedure - Status Source Growth 02/25 1650 MRSA Screen - RECD NASAL Assessment and Plan Problem List 1. Chest pain Plan Stress testing per cardiology.
[2017-02-26 07:38] VITALS: BP 157/80
[2017-02-26 10:45] VITALS: BP 148/72
[2017-02-26] MEDS ORDERED: ATORVASTATIN CA40 MG PO (18:37)
--- NOTE | 2017-02-26 18:39 | Provider's Discharge Care Plan ---
Problem, Goal, Plan Problem List 1. Chest pain Goals: Improved health/wellness Instructions: Follow up as directed, Take meds as directed, Stop smoking
--- NOTE | 2017-02-26 18:39 | Provider's Discharge Care Plan ---
Problem, Goal, Plan Problem List 1. Chest pain Goals: Improved health/wellness Instructions: Follow up as directed, Take meds as directed, Stop smoking
--- NOTE | 2017-02-26 21:59 | DISCHARGE SUMMARY ---
ADMIT DATE: 02/25/2017 DISCHARGE DATE: 02/26/2017 ADMITTING DIAGNOSES: 1. Chest pain, rule out myocardial infarction 2. History of coronary artery disease and stents 3. Tobacco abuse DISCHARGE DIAGNOSES: 1. Chest pain, rule out myocardial infarction, myocardial infarction ruled out 2. History of coronary artery disease and stents 3. Tobacco abuse BRIEF HISTORY: A 76-year-old female presented to [facility] with chest pain radiating down the left arm, 7/10 intensity, transported to the emergency department by . Emergency department evaluation included negative troponins and relatively normal examination. Her care was discussed with her solar sales advisor, Dr. Carr, who requested admission for rule out myocardial infarction protocol. HOSPITAL COURSE: The patient was admitted to Hospitalist Service with Dr. Carr consulting. Serial cardiac enzymes and EKGs were performed, which showed no change and remained benign. Telemetry was benign. The patient had no further symptomatology following admission. Nuclear stress test was performed on the day of discharge by Dr. Carr, which was reported as low risk. The patient was therefore felt to be stable for discharge. PHYSICAL EXAMINATION: Discharge physical examination revealed: VITAL SIGNS: Stable vital signs. LUNGS: Clear. HEART: Regular rate and rhythm without murmur. ABDOMEN: Benign. EXTREMITIES: Without cyanosis, clubbing, or edema. DISCHARGE INSTRUCTIONS/MEDICATIONS: Disposition: Home. Discharge medications: Atorvastatin 40 mg p.o. daily (new medication for this patient), Advair 1 puff b.i.d., aspirin 81 mg p.o. daily, benzonatate 200 mg p.o. t.i.d., duloxetine 60 mg p.o. daily, metoprolol 25 mg p.o. b.i.d., omeprazole 40 mg p.o. daily, ondansetron 4 mg p.o. q.4 hours p.r.n. nausea. Special instructions: Cardiac diet. Gentle aerobic exercise daily. Smoking cessation recommended. Followup instructions: Follow up with Dr. Carr , Cardiology, in [address] Dr[address] Carr. Follow up with Dr. Crouch, Primary Care Physician, as needed.
--- NOTE | 2017-03-14 13:27 | DIAGNOSTIC IMAGING REPORT ---
REFERRING PHYSICIAN/PROVIDER: Bay Brenner MD ATTENDING PHYSICIAN/PROVIDER: Bob Coburn MD CONSULTING PHOTOCOMPOSING MACHINE OPERATOR: Jose Emery MD PROCEDURE PERFORMED: Nuclear stress test INDICATION: chest pain RADIOPHARMACEUTICAL: The patient received 9 mCi of technetium 99 sestamibi during rest. The patient received 30.0 mCi of technetium 99 sestamibi during peak pharmacological stress. This is a 1-day stress protocol. CARDIAC STRESS: The patient was stressed according to the Lexiscan Cardiolite protocol. The resting heart rate was 75 beats per minute and the heart rate at end of test was 88 beats per minute. The patient's baseline blood pressure was 147/78 mmHg. The patient denied any chest pain nor were there any significant arrhythmias. There are no evidence of ST changes. This is a nondiagnostic pharmacological stress test. RAW DATA: There is appropriate radiotracer uptake of the LV myocardium. QUANTITATIVE GATED SPECT: LV wall motion is normal. LV ejection fraction is normal at 76%. MYOCARDIAL PERFUSION STUDY: There is no evidence of fixed or reversible perfusion defects. IMPRESSION: 1. This is a normal myocardial perfusion study. 2. Normal ejection fraction.
--- NOTE | 2017-03-14 13:27 | DIAGNOSTIC IMAGING REPORT ---
REFERRING PHYSICIAN/PROVIDER: Bay Brenner MD ATTENDING PHYSICIAN/PROVIDER: Bob Coburn MD CONSULTING MARINE MAMMAL TRAINER: Jose Emery MD PROCEDURE PERFORMED: Nuclear stress test INDICATION: chest pain RADIOPHARMACEUTICAL: The patient received 9 mCi of technetium 99 sestamibi during rest. The patient received 30.0 mCi of technetium 99 sestamibi during peak pharmacological stress. This is a 1-day stress protocol. CARDIAC STRESS: The patient was stressed according to the Lexiscan Cardiolite protocol. The resting heart rate was 75 beats per minute and the heart rate at end of test was 88 beats per minute. The patient's baseline blood pressure was 147/78 mmHg. The patient denied any chest pain nor were there any significant arrhythmias. There are no evidence of ST changes. This is a nondiagnostic pharmacological stress test. RAW DATA: There is appropriate radiotracer uptake of the LV myocardium. QUANTITATIVE GATED SPECT: LV wall motion is normal. LV ejection fraction is normal at 76%. MYOCARDIAL PERFUSION STUDY: There is no evidence of fixed or reversible perfusion defects. IMPRESSION: 1. This is a normal myocardial perfusion study. 2. Normal ejection fraction.
== END 2017-02-26 18:55 | disposition home or self-care (01) ==
LOC: ED SRH 14:10 → CC SRH 15:45 → TRANS SRH 15:45 → CC SRH 16:45
PROVIDERS: ADMIT Family Medicine
PROC: 4A02XM4 Measurement of Cardiac Total Activity, External Approach (ICD-10-PCS; principal; 2017-02-26)
PROC: 3E073KZ Introduction of Other Diagnostic Substance into Coronary Artery, Percutaneous Approach (ICD-10-PCS; principal; 2017-02-26)
DX: R07.9 Chest pain, unspecified (principal); I25.10 Atherosclerotic heart disease of native coronary artery without angina pectoris; F17.210 Nicotine dependence, cigarettes, uncomplicated; Z95.1 Presence of aortocoronary bypass graft; Z95.5 Presence of coronary angioplasty implant and graft
CPT/HCPCS: 90004; 90074; 90100; 90616; 91320; 91556; 92132; 92235; 92530; 92610; 94001; 94060; 95059

== ENCOUNTER 2017-03-04 11:53 | Outpatient (CLI) | payer OTHER ==
[~2017-03-04 11:53] MED LIST: ADVAIR DISKU1 INH; ASPIRIN ADULT L81 MG PO; ATORVASTATIN CA40 MG PO; BENZONATATE200 MG PO; CYMBALTA60 MG PO; METOPROLOL SUCC25 MG PO; OMEPRAZOLE40 MG PO; PROTONIX40 MG PO; ZOFRAN ODT4 MG PO
--- NOTE | 2017-03-04 12:59 | DIAGNOSTIC IMAGING REPORT ---
PROCEDURE: ABDOMEN/PELVIS WITH CONTRAST CLINICAL INDICATION: ABDOMINAL PAIN TECHNIQUE: 100 ml of Isovue 300 were injected intravenously and axial images were obtained of the abdomen and pelvis with sagittal and coronal reformations. COMPARISON: 10/24/2015 FINDINGS: ABDOMEN: Minor lingular atelectasis and trace right lung base scarring. Normal sized heart. No hiatal hernia. Surgically absent gallbladder. Severely diminutive pancreas without ductal dilatation. Mild bilateral renal cortical thinning and very small cortical hypodensities suggestive of cysts. The liver, adrenal glands, and spleen are normal. The abdominal aorta is normal in its course and caliber. Moderate to heavy mixed calcified and noncalcified atherosclerosis There are no suspicious calcifications, retroperitoneal adenopathy or masses. The stomach, upper bowel loops, and mesentery are normal. Intact anterior abdominal wall. No free fluid or inflammation. Redundant colon at the hepatic and splenic flexure. PELVIS: The entire sigmoid colon demonstrates extensive diverticulosis with multiple, moderate to large size, impacted diverticula. Long segment of circumferential wall thickening and mucosal hyperemia. No significant pericolonic fat stranding to suggest acute inflammation. No extraluminal gas, free fluid, or suspicious fluid collection. The pelvic small bowel loops are normal. Uterus and appendix are surgically absent. Normal amount of stool in the colon and rectum. Urinary bladder is normal. Pelvic vessels are normal caliber. There is heavy calcific atherosclerosis of the common and external iliac arteries, right worse than left. No adenopathy, free fluid, or pelvic mass. Intact osseous structures. IMPRESSION: 1. Fairly extensive, chronic-appearing sigmoid diverticulosis with circumferential wall thickening suggestive of repeated bouts of acute diverticulitis. No significant inflammation to suggest active diverticulitis. 2. Status post cholecystectomy, appendectomy, hysterectomy. 3. Moderate to heavy atherosclerosis, particularly in the right common and external iliac arteries. All CT scans at this facility use dose modulation, iterative reconstruction, and/or weight-based dosing when appropriate to reduce radiation dose to as low as reasonably achievable.
== END 2017-03-04 23:00 ==
LOC: CT SRH 11:53
DX: K57.30 Diverticulosis of large intestine without perforation or abscess without bleeding (principal)

== ENCOUNTER 2017-04-13 10:15 | Emergency (ER) | payer OTHER ==
--- NOTE | 2017-04-13 14:09 | ED ORDER SUMMARY ---
..... Patient: CHAR CASTAÑEDA OrderSheet [facility] VisitID: [id number] [place] [address] 76y, F Registration Date/Time: 04/13/2017 ORDER SHEET Weight: 56.2 kg (stated) Allergies: Cephalexin, Codeine, Doxycycline, Iodine, Metronidazole, PCN, Ramipril GENERAL ORDERS: UA-Culture if indicated Urgent (10:58 04/13/2017 DDean R.N. per protocol) (Ack 11:00 IJurca ER Tech1) (11:15 DDean R.N.) CBC w Diff Urgent (11:04/13/2017 Jason VILLALTA) (Ack 11:15 RAISSAurca ER Tech1) (11:36 DDean R.N.) CMP Urgent (11:04/13/2017 Jason VILLALTA) (Ack 11:15 RAISSAurca ER Tech1) (11:36 DDean R.N.) UA-Culture if indicated Urgent (11:04/13/2017 Jason VILLALTA) (Ack 11:15 Naimaa ER Tech1) (11:36 DDean R.N.) Lipase Urgent (11:04/13/2017 Jason VILLALTA) (Ack 11:15 RAISSAurca ER Tech1) (11:36 DDean R.N.) - (PLEASE --- PANTS OFF WITH ABDOMINAL PAIN) (11:15 04/13/2017 Jason VILLALTA) (11:17 DDean R.N.) (11:17 IJurca ER Tech1) MEDICATION ORDERS: IV FLUIDS: IV Saline Lock (11:04/13/2017 Jason VILLALTA) (Ack 11:17 DDean R.N.) (11:36 DDean R.N.) ORDER SHEET NOTES: [Electronically signed by Judie Pearce R.N. (17:04/13/2017)] [Electronically signed by Wilfrido Bell MD (09:08 04/16/2017)] [Electronically locked/signed by Judie Pearce R.N. (:04/13/2017)]
--- NOTE | 2017-04-13 14:09 | ED ORDER SUMMARY ---
..... Patient: CHAR CASTAÑEDA OrderSheet [facility] VisitID: [id number] [place] [address] 76y, F Registration Date/Time: 04/13/2017 ORDER SHEET Weight: 56.2 kg (stated) Allergies: Cephalexin, Codeine, Doxycycline, Iodine, Metronidazole, PCN, Ramipril GENERAL ORDERS: UA-Culture if indicated Urgent (10:58 04/13/2017 DDean R.N. per protocol) (Ack 11:00 IJurca ER Tech1) (11:15 DDean R.N.) CBC w Diff Urgent (11:04/13/2017 Jason VILLALTA) (Ack 11:15 RAISSAurca ER Tech1) (11:36 DDean R.N.) CMP Urgent (11:04/13/2017 Jason VILLALTA) (Ack 11:15 RAISSAurca ER Tech1) (11:36 DDean R.N.) UA-Culture if indicated Urgent (11:04/13/2017 Jason VILLALTA) (Ack 11:15 Naimaa ER Tech1) (11:36 DDean R.N.) Lipase Urgent (11:04/13/2017 Jason VILLALTA) (Ack 11:15 RAISSAurca ER Tech1) (11:36 DDean R.N.) - (PLEASE --- PANTS OFF WITH ABDOMINAL PAIN) (11:15 04/13/2017 Jason VILLALTA) (11:17 DDean R.N.) (11:17 IJurca ER Tech1) MEDICATION ORDERS: IV FLUIDS: IV Saline Lock (11:04/13/2017 Jason VILLALTA) (Ack 11:17 DDean R.N.) (11:36 DDean R.N.) ORDER SHEET NOTES: [Electronically signed by Judie Pearce R.N. (17:04/13/2017)] [Electronically signed by Wilfrido Bell MD (09:08 04/16/2017)] [Electronically locked/signed by Judie Pearce R.N. (:04/13/2017)]
--- NOTE | 2017-04-13 14:09 | ED CLINICAL REPORT ---
Clinical Report - Physicians/Mid Levels [place] [address] [place] [address] 04/13/2017 10:18 Patient: CHAR SEGURA Time Seen: 11:09. Arrived- By private vehicle. Historian- patient. HISTORY OF PRESENT ILLNESS Chief Complaint: ABDOMINAL PAIN and COUGH. At its maximum, severity described as severe. When seen in the E.D., severity described as severe. Modifying factors- (Better with hydrocodone). This started several years ago; Several years cured with abx and steroids CT 1 month ago Ms. Segura has a several year history of abdominal pain. She tells me that both her abdominal pain and her fibromyalgia pain were well treated with hydrocodone, but that she no longer has access to hydrocodone. Her [facility] report shows fairly recent prescription for 150 hydrocodone. This was about 6 weeks ago. and is still present. It has been waxing/waning. It is described as "pain" and it is described as generalized in location. The patient has had nausea. No vomiting. Similar symptoms previously: Many times. ( hydrocodone "cut off"). Recent medical care: The patient was seen recently by a health care provider. ( Dr Geoff CALIX - one month ago referred to [facility]. Asked for). REVIEW OF SYSTEMS The patient is post-menopausal. No constipation, black stools, difficulty with urination, pain with urination or urinary frequency. No fever, sore throat, blurred vision, chest pain or difficulty breathing. No chills. Last bowel movement: today. The patient has had a cough. PAST HISTORY PAST HISTORY PCP - Ray [facility] - [facility]. Problems: FIBROMYALGIA ABDOMINAL PAIN Coronary Artery Disease. Aphthous Ulcer. Chest Pain. Eye Pain. Chest Wall Pain. Constipation. Diverticulitis. Pressure Ulcer. Hypotension. GI Bleeding. Fibromyalgia. Anxiety Reaction. Hypertension. Corneal Abrasion. Additional Surgeries: Angioplasty with coronary artery stent placement. Cardiac Procedures. Cholecystectomy. Appy Hysterectomy. Kidney stones. Medications: Aleve Oral 440 mg, PRN, last dose 0800. Aspirin EC Oral 81 mg, daily. Benzonatate Oral (Capsule 200 mg) 1 capsule, 3x a day. DULoxetine HCl Oral 60mg, daily. Metoprolol Tartrate Oral 25 mg, two times a day. Omeprazole Oral 40 mg, before meals. Pantoprazole Sodium Oral 40 mg, daily. Allergies: Cephalexin. Codeine.(Anaphylaxis) Doxycycline. Iodine. Metronidazole. PCN. Ramipril. SOCIAL HISTORY Current every day smoker. ADDITIONAL NOTES The nursing notes have been reviewed. PHYSICAL EXAM Vital Signs: 04/13/2017 14:10 BP: 166/80. HR: 86. RR: 20. O2 saturation: 98%. Pain level now: 06/27. 04/13/2017 13:30 BP: 142/78. HR: 84. RR: 18. O2 saturation: 96%. Pain level now: 07/28. 04/13/2017 12:05 BP: 162/80. HR: 76. RR: 18. O2 saturation: 95%. Pain level now: 06/27. 04/13/2017 10:35 BP: 173/87. HR: 80. RR: 20. O2 saturation: 96%. Temp: 97.9 F. Pain level now: 06/27. Appearance: Alert. No acute distress. Eyes: Pupils equal, round and reactive to light. Eyes normal inspection. ENT: Pharynx normal. Neck: Normal inspection. CVS: Normal heart rate and rhythm. Heart sounds normal. Respiratory: No respiratory distress. Breath sounds normal. Abdomen: Mild tenderness diffusely. Bowel sounds normal. No mass. No rebound tenderness or guarding. Skin: Skin warm. Normal skin color. Extremities: Extremities exhibit normal ROM. No lower extremity edema. LABS, X-RAYS, AND EKG Laboratory Tests: UA-Culture if indicated: (ARTIS: 04/13/2017 10:50) ( MsgRcvd 04/13/2017 11:22) Final results Test Result Flag Units (Reference) URINE COLOR YELLOW URINE APPEARANCE CLEAR URINE GLUCOSE NEGATIVE (NEGATIVE) URINE BILIRUBIN NEGATIVE (NEGATIVE) URINE KETONE NEGATIVE (NEGATIVE) URINE SPECIFIC GRAVITY <= 1.005 L (1.010-1.030) URINE PH 5.5 (5.0-8.0) URINE PROTEIN NEGATIVE (NEGATIVE) URINE UROBILINOGEN 0.2 EU/dL (0.2-1.0) URINE NITRITE NEGATIVE (NEGATIVE) URINE BLOOD NEGATIVE (NEGATIVE) URINE LEUK ESTERASE NEGATIVE (NEGATIVE) URINE RBC NONE SEEN rbc/hpf (0-1) URINE WBC NONE SEEN wbc/hpf (0-1) URINE EPITHELIAL CELLS 0-1 EPI/hpf (0-5) URINE BACTERIA NONE SEEN (NONE SEEN) URINE COMMENT CULT NOT INDICATED URINE CULTURES ARE SET-UP BASED ON THE FOLLOWING CRITERIA:POSITIVE NITRITEPOSITIVE LEUKOCYTE ESTERASEGREATER THAN 10 WHITE BLOOD CELLSMODERATE (2+) OR GREATER BACTERIA CBC w Diff: (ARTIS: 04/13/2017 11:22) ( [facility] [place] 04/13/2017 11:55) Final results Test Result Flag Units (Reference) WHITE BLOOD COUNT 6.9 K/uL (4.5-11.5) RED BLOOD COUNT 4.05 M/uL (4.00-5.20) HEMOGLOBIN 11.9 L gm/dL (12.0-16.0) HEMATOCRIT 36.2 % (36.0-46.0) MEAN CELL VOLUME 90 fL (80-100) MEAN CORPUSCULAR HGB 29 pg (26-34) MEAN CORPUSCULAR HGB CONC 33 g/dL (31-37) RED CELL DISTRIBUTION WIDTH 14.9 H % (11.6-14.8) PLATELET COUNT 247 K/uL (150-400) NEUTROPHIL % 60.2 % (50-75) LYMPH % 30.7 % (25-40) MONO % 5.7 % (3-14) EOSINOPHIL % 2.9 % (0-4) BASOPHIL % 0.5 % (0-2) CMP: (ARTIS: 04/13/2017 11:22) ( [facility] [place] 04/13/2017 12:22) Final results Test Result Flag Units (Reference) GLUCOSE 105 mg/dL (70-110) BUN 13 mg/dL (7-18) CREATININE 1.2 mg/dL (0.6-1.3) Estimated GFR 46.30 mL/min Estimated GFR- 56.11 mL/min Note: Persistent reduction over 3 months in eGFR<60 mL/min/1.73 m2 defines CKD. Patients with eGFR values>=60 mL/min/1.73 m2 may also have CKD if evidence ofpersistent proteinuria. Additional information may be foundat www.kidney.org. SODIUM 140 mmol/L (136-145) POTASSIUM 3.9 mmol/L (3.5-5.1) CHLORIDE 101 mmol/L (98-107) CARBON DIOXIDE 28 mmol/L (21-32) CALCIUM 8.7 mg/dL (8.5-10.1) TOTAL PROTEIN 7.5 g/dL (6.4-8.2) ALBUMIN 3.8 g/dL (3.3-5.0) BILIRUBIN, TOTAL 0.3 mg/dL (0.0-1.0) ALKALINE PHOSPHATASE 88 U/L (46-116) AST (SGOT) 24 U/L (15-37) ALT (SGPT) 17 U/L (12-78) LIPASE 114 U/L (73-393) . PROGRESS AND PROCEDURES Course of Care: 14:00 04/13/17. Denies flagyl allergy Ms. Segura believes she has diverticulitis, both her history and physical examination and laboratory all point away from from an acute surgical abdomen. It's possible she has very mild diverticulitis she can take Flagyl and So I will put her on Flagyl. The medical record states that she is allergic to metronidazole but she tells me that she is not allergic to metronidazole nor to Flagyl. The patient needs to have her analgesia provided by her primary care doctor. She is adamant that she did not get those prescriptions as documented on [facility]. Someone may have stolen her identity. CLINICAL IMPRESSION Abdominal pain. INSTRUCTIONS (THE [facility] FORM SHOWS THAT YOU GOT 50 AND 100 OXYCODONE ON FEBRUARY 22 AND 2016. PAUL COULD SOMEONE COULD BE STEALING YOUR IDENTITY. CHECK WITH YOUR PHARMACY SEE YOUR DR IN THE NEXT FEW DAYS. IMMEDIATE RECHECK IF WORSE.). Prescription Medications: Metronidazole 500 mg: Take 1 tablet orally every 12 hours for 7 days. No refill. Follow-up: Follow up with your doctor in four days. Understanding of the discharge instructions verbalized. (Electronically signed by Wilfrido Bell MD 04/16/2017 9:08)
--- NOTE | 2017-04-13 14:09 | ED NURSING NOTES ---
Clinical Report - Nurses [facility] [address] [place] [address] 04/13/2017 10:18 Patient: CHAR CASTAÑEDA TRIAGE Triage time 1035. Acuity: LEVEL 3. Chief Complaint: ABDOMINAL PAIN and NAUSEA. --10:48 Judie Pearce R.N. 10:35 04/13/17. BP: 173/87. HR: 80. RR: 20. O2 saturation: 96% on room air. Temp: 97.9 F. Pain level now: 06/27. --10:48 Judie Pearce R.N. Weight: 56.2 kg stated. Height/Length: 62 inches Per Patient. BMI: 22.7. --10:45 Judie Pearce R.N. Medications Aspirin EC Oral 81 mg, daily. Benzonatate Oral (Capsule 200 mg) 1 capsule, 3x a day. DULoxetine HCl Oral 60mg, daily. Metoprolol Tartrate Oral 25 mg, two times a day. Omeprazole Oral 40 mg, before meals. Pantoprazole Sodium Oral 40 mg, daily. --10:45 Judie Pearce R.N. Aleve Oral 440 mg, PRN, last dose 0800. --10:46 Judie Pearce R.N. The following entry was struck by Judie Pearce R.N., 10:57 (04/13/17) Reason - other. <<STRICKEN ENTRY-- Zofran ODT Oral, as needed. --10:45 Judie Pearce R.N. --END STRIKE>> The following entry was struck by Judie Pearce R.N., 10:56 (04/13/17) Reason - other. <<STRICKEN ENTRY-- Advair Diskus Inhalation (Aerosol Powder Breath Activated 100-50 mcg/dose) 1 puff, 2x a day. --10:45 Judie Pearce R.N. --END STRIKE>>. Allergies Cephalexin. Codeine.(Anaphylaxis) Doxycycline. Iodine. Metronidazole. PCN. Ramipril. --10:45 Judie Pearce R.N. History Arrived by private vehicle. Historian: patient. Unaccompanied. Primary physician ([facility] smokey pt). Onset. (3 months- but IO just can't take it anymore). She has had diarrhea. She has had abdominal pain (midline low abd pain). ( was seen here about a month ago and CT showed diverticulosis). No vomiting. SOCIAL HX: Light tobacco smoker (cigarette)- less than 1/2 a pack per day. No alcohol use or drug use. --10:48 Judie Pearce R.N. PROBLEMS: Coronary Artery Disease. Aphthous Ulcer. Chest Wall Pain. Constipation. Diverticulitis. Pressure Ulcer. Hypotension. GI Bleeding. Fibromyalgia. Anxiety Reaction. Hypertension. --10:44 Judie Pearce R.N. ADDITIONAL SURGERIES: Angioplasty with coronary artery stent placement. Cholecystectomy. Hysterectomy. Kidney stones. --10:45 Judie Pearce R.N. Interventions ID band on patient. To treatment room. --10:48 Judie Pearce R.N. PHYSICAL ASSESSMENT 10:35. Ambulatory to room. Patient gowned. GENERAL / NEURO / PSYCH: Alert. Oriented X 4. Appears in pain and anxious. RESPIRATORY: Respirations not labored. CVS: Capillary refill less than 2 seconds. GI / : The patient has had nausea. Abdomen soft. SKIN: Skin is warm and dry. --10:49 Judie Pearce R.N. NURSING PROGRESS NOTES 10:35. Patient gowned. Head of bed elevated. Reassurance given. Patient identifiers checked. Call light placed in reach. Side rails up. Bed placed in lowest position. Patient ready for evaluation- chart flagged. --10:49 Judie Pearce R.N. 10:52. Patient ID band checked for patient name and birthdate: patient confirmed. Clean catch urine collected with return of yellow-colored urine; sample sent to lab for urinalysis and culture. Specimen labeled in the presence of the patient. --11:35 Judie Pearce R.N. 11:20 04/13/2017 Site #1 started via IV in the right antecubital space with an 20g angiocath, with aseptic technique and good blood return; one attempt. Blood drawn: rainbow set. Labeled in the presence of the patient and sent to the lab. Saline lock flushed with 10 mL saline. --11:35 Judie Pearce R.N. 11:20. ( IV started, labs sent. pt cont to c/o abd pain, asking for meds. ERMD notified). --11:37 Judie Pearce R.N. 12:05 04/13/17. BP: 162/80. HR: 76. RR: 18. O2 saturation: 95% on room air. Temp: deferred. Pain level now: 06/27. Additional comments: pt watching t.v., given blanket. --14:08 Judie Pearce R.N. 13:30 04/13/17. BP: 142/78. HR: 84. RR: 18. O2 saturation: 96% on room air. Temp: deferred. Pain level now: 07/28. Additional comments: Pt asking her status, wants to go home. --14:10 Judie Pearce R.N. 13:50. ( pt at bedside talking with pt at length regarding LEAH form and rxs written by other doctors. (pt denies this)). --14:36 Judie Pearce R.N. DISPOSITION / DISCHARGE 14:10. Condition at departure: unchanged and stable. No learning barriers present. Discharge instructions provided and reviewed with the patient. Reviewed medication(s) (flagyl). Patient verbalized understanding. Written instructions provided in Sudanese. The patient was discharged home and unaccompanied at time of discharge. She left the Emergency Department ambulatory and via private vehicle. Patient driving. --14:17 Judie Pearce R.N. 14:10 04/13/17. BP: 166/80. HR: 86. RR: 20. O2 saturation: 98% on room air. Temp: deferred. Pain level now: 06/27. --14:17 Judie Pearce R.N. Locked/Released at 04/13/2017 17:22 by Judie Pearce R.N.
--- NOTE | 2017-04-16 09:08 | ED MED RECONCILIATION SUMMARY ---
Patient: CHAR CASTAÑEDA Medication Reconciliation Report [facility] VisitID: [id number] [address] [place] [address] 76y, F Registration Date/Time: 04/13/2017 Weight: 56.2 kg Height/Length: 62 in. BMI: 22.7 ALLERGIES: Cephalexin, Codeine, Doxycycline, Iodine, Metronidazole, PCN, Ramipril The patient's Home Medications are listed below: THE FOLLOWING MEDICATIONS NEED TO BE RECONCILED: Aleve Oral 440 mg, PRN, last dose: 0800 Aspirin EC Oral 81 mg, daily Benzonatate Oral (200 mg) 1 capsule, 3x a day DULoxetine HCl Oral 60mg, daily Metoprolol Tartrate Oral 25 mg, two times a day Omeprazole Oral 40 mg, before meals Pantoprazole Sodium Oral 40 mg, daily The source(s) of the original Home Medication information: Not obtained. The following Medications were given to the patient in the Emergency Department: None. The following Medications were prescribed to the patient: Metronidazole 500 mg: Take 1 tablet orally every 12 hours for 7 days. No refill. -- Wilfrido Bell MD
--- NOTE | 2017-04-16 09:08 | ED MED RECONCILIATION SUMMARY ---
Patient: CHAR CASTAÑEDA Medication Reconciliation Report [facility] VisitID: [id number] [address] [place] [address] 76y, F Registration Date/Time: 04/13/2017 Weight: 56.2 kg Height/Length: 62 in. BMI: 22.7 ALLERGIES: Cephalexin, Codeine, Doxycycline, Iodine, Metronidazole, PCN, Ramipril The patient's Home Medications are listed below: THE FOLLOWING MEDICATIONS NEED TO BE RECONCILED: Aleve Oral 440 mg, PRN, last dose: 0800 Aspirin EC Oral 81 mg, daily Benzonatate Oral (200 mg) 1 capsule, 3x a day DULoxetine HCl Oral 60mg, daily Metoprolol Tartrate Oral 25 mg, two times a day Omeprazole Oral 40 mg, before meals Pantoprazole Sodium Oral 40 mg, daily The source(s) of the original Home Medication information: Not obtained. The following Medications were given to the patient in the Emergency Department: None. The following Medications were prescribed to the patient: Metronidazole 500 mg: Take 1 tablet orally every 12 hours for 7 days. No refill. -- Wilfrido Bell MD
--- NOTE | 2017-04-16 09:08 | ED DISCHARGE INSTRUCTIONS ---
Patient: CHAR CASTAÑEDA General Instructions [facility] VisitID: [id number] [address] [place] [address] 76y, F Registration Date/Time: 04/13/2017 Abdominal pain. INSTRUCTIONS (THE [facility] FORM SHOWS THAT YOU GOT 50 AND 100 OXYCODONE ON FEBRUARY 22 AND 2016. PHILIP AND ZAINA COULD SOMEONE COULD BE STEALING YOUR IDENTITY. CHECK WITH YOUR PHARMACY SEE YOUR DR IN THE NEXT FEW DAYS. IMMEDIATE RECHECK IF WORSE.). Prescription Medications: Metronidazole 500 mg: Take 1 tablet orally every 12 hours for 7 days. No refill. Follow-up: Follow up with your doctor in four days. Understanding of the discharge instructions verbalized. (Electronically signed by Wilfrido Bell MD 04/16/2017 9:08)
--- NOTE | 2017-04-16 09:08 | ED MAR SUMMARY ---
..... Medication Administration Record [facility] [address] [place], [place] [id number] Patient: CHAR CASTAÑEDA Visit ID: [id number] 76y, F Weight: 56.2 kg Height/Length: 62 in BMI: 22.7 ALLERGIES: Cephalexin, Codeine, Doxycycline, Iodine, Metronidazole, PCN, Ramipril
--- NOTE | 2017-04-16 09:08 | ED MAR SUMMARY ---
..... Medication Administration Record [facility] [address] [place], [place] [id number] Patient: CHAR CASTAÑEDA Visit ID: [id number] 76y, F Weight: 56.2 kg Height/Length: 62 in BMI: 22.7 ALLERGIES: Cephalexin, Codeine, Doxycycline, Iodine, Metronidazole, PCN, Ramipril
--- NOTE | 2017-04-16 09:08 | ED DISCHARGE INSTRUCTIONS ---
Patient: CHAR CASTAÑEDA General Instructions [facility] VisitID: [id number] [address] [place] [address] 76y, F Registration Date/Time: 04/13/2017 Abdominal pain. INSTRUCTIONS (THE [facility] FORM SHOWS THAT YOU GOT 50 AND 100 OXYCODONE ON FEBRUARY 22 AND 2016. PHILIP AND ZAINA COULD SOMEONE COULD BE STEALING YOUR IDENTITY. CHECK WITH YOUR PHARMACY SEE YOUR DR IN THE NEXT FEW DAYS. IMMEDIATE RECHECK IF WORSE.). Prescription Medications: Metronidazole 500 mg: Take 1 tablet orally every 12 hours for 7 days. No refill. Follow-up: Follow up with your doctor in four days. Understanding of the discharge instructions verbalized. (Electronically signed by Wilfrido Bell MD 04/16/2017 9:08)
== END 2017-04-13 14:10 | disposition home or self-care (01) ==
LOC: ED SRH 10:15
DX: R10.84 Generalized abdominal pain (principal); I10 Essential (primary) hypertension; Z79.82 Long term (current) use of aspirin; Z79.1 Long term (current) use of non-steroidal anti-inflammatories (NSAID); Z79.899 Other long term (current) drug therapy; F17.210 Nicotine dependence, cigarettes, uncomplicated; Z88.1 Allergy status to other antibiotic agents; Z88.5 Allergy status to narcotic agent; Z88.0 Allergy status to penicillin; Z88.8 Allergy status to other drugs, medicaments and biological substances
CPT/HCPCS: 90004; 90100; 92235; 95059